=== PATIENT | female | born 1980 | race Caucasian/White ===

== ENCOUNTER 2017-11-30 11:18 | Emergency (ER) | payer MEDICAID, OTHER ==
--- NOTE | 2017-11-30 12:58 | EDPHY ---
H & P Smoking Status: Current every day smoker Time Seen by Provider: 11/30/17 11:47 HPI/ROS: CHIEF COMPLAINT: Back pain HISTORY OF PRESENT ILLNESS: 37-year-old female presents to the emergency department with low back pain. She states that she has a history of chronic back pain and will occasionally flare up on her. 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 She has pain especially with movement. Denies bowel or bladder incontinence. Denies footdrop. Denies pain in her chest or or difficulty breathing. Denies abdominal pain. Has taken occasional ibuprofen with relief. REVIEW OF SYSTEMS: Constitutional: No fever, no chills. Eyes: No double or blurry vision. ENT: No sore throat. Respiratory: No cough, no shortness of breath. Cardiac: No chest pain. Gastrointestinal: No abdominal pain, vomiting or diarrhea. Genitourinary: No dysuria. Musculoskeletal: Back pain as above. No neck pain. Skin: No rashes. Neurological: No headache. (Toshia Biswas) Past Medical/Surgical History: Kidney stones, chronic back pain (Toshia Biswas) Social History: Culinary student (Toshia Biswas) Physical Exam: General Appearance: Alert, no distress. Eyes: Pupils equal and round. Extraocular motions are all intact. ENT: Mouth: Mucous membranes moist. Respiratory: No wheezing, rhonchi, or rales, lungs are clear to auscultation. Cardiovascular: Regular rate and rhythm. Gastrointestinal: Abdomen is soft and nontender, no masses, no rebound or guarding, bowel sounds normal. Neurological: Alert and oriented x 3, cranial nerves II through XII grossly intact Skin: Warm and dry, no rashes. Musculoskeletal: Nontender to palpate along the cervical, thoracic or lumbar spine. Neck is supple. Extremities: Full range of motion and no peripheral edema. Straight leg raise is negative bilaterally. Reflexes are 2+ and equal for lower extremities bilaterally. Psychiatric: Patient is oriented X 3, there is no agitation. (Toshia Biswas) Constitutional: Initial Vital Signs Temperature (C) 36.9 C 11/30/17 11:29 Heart Rate 64 11/30/17 11:29 Respiratory Rate 16 11/30/17 11:29 Blood Pressure 114/82 H 11/30/17 11:29 O2 Sat (%) 98 11/30/17 11:29 O2 Delivery Mode Room Air Allergies/Adverse Reactions: erythromycin base Allergy (Verified 11/30/17 11:29) Sulfa (Sulfonamide Antibiotics) Allergy (Verified 11/30/17 11:29) Home Medications: Medication Instructions Recorded Cyclobenzaprine [Flexeril] 10 mg PO HS PRN #10 tab 11/30/17 methylPREDNISolone [Medrol Dose 1 each PO AD #1 ea 11/30/17 Benji] Medical Decision Making ED Course/Re-evaluation: 37-year-old female presents to the emergency department with back pain. She has an otherwise normal neurologic examination. I do not think imaging studies are indicated. She was given Medrol Dosepak as well as Flexeril for muscular spasm at bedtime. Patient was also given primary care referral and will return if she has any other change in symptoms or feels worse. (Toshia Biswas) The patient was evaluated and managed by the physician automobile mechanic assistant. I have reviewed this chart and I agree with the findings and plan of care as documented , as indicated by my signature. I am the secondary supervising physician. ( Milady Herrera) Differential Diagnosis: Back pain including but not limited to muscular pain, herniated disc, spine fracture, intra-abdominal causes and urinary tract infection. (Toshia Biswas) Departure - Departure Disposition: Home, Routine, Self-Care Clinical Impression: Lumbar strain, Low back pain Condition: Good Instructions: Low Back Strain (ED), Acute Low Back Pain (ED), Back Pain (ED) Additional Instructions: Ibuprofen 600 mg every 8 hr as needed for pain. Medrol Dosepak as directed for 1 week. Flexeril as needed for muscular spasms to help you sleep only at nighttime. You may try topical lidocaine patches [id number] and apply tear back and removed in 12 hr as directed. Referrals: Horace Lemus DO [Doctor of Osteopathy] - As per Instructions (Primary care provider compensation/benefits specialist) Kimani Fierro MD [Medical Doctor] - 5-7 days, if not improved (Neurosurgeon on -call) Stand Alone Forms: School Excuse, Work Excuse Prescriptions: Cyclobenzaprine [Flexeril] 10 mg PO HS PRN #10 tab PRN Reason: P.r.n. Spasm methylPREDNISolone [Medrol Dose Benji] 1 each PO AD #1 ea
[2017-11-30 13:19] VITALS: BP 110/80
== END 2017-11-30 13:20 | disposition home or self-care (01) ==
DX: S33.5XXA Sprain of ligaments of lumbar spine, initial encounter (principal); X58.XXXA Exposure to other specified factors, initial encounter; F17.210 Nicotine dependence, cigarettes, uncomplicated